=== PATIENT | male | born 1945 | race Caucasian/White ===

== ENCOUNTER 2024-02-02 09:51 | Observation (INO) | payer MEDICARE, OTHER ==
[2024-02-02 10:29] LABS: Absolute Neutrophil Ct (ANC) 5.79 x10^3/uL (1.78-5.38); BASOPHIL % 0.4 % (0.2-1.2); Basophil (Absolute #) 0.03 x10^3/uL (0.01-0.08); Eosinophil % 2.1 % (0.8-7.0); Eosinophil (Absolute #) 0.15 x10^3/uL (0.04-0.54); Hematocrit 30.2 % (40.1-51.0); Hemoglobin 9.5 g/dL (13.7-17.5); IMMATURE GRAN # 0.04 x10^3u/L (0.001-0.031); IMMATURE GRAN % 0.6 % (0.001-0.429); Lymphocyte (Absolute #) 0.28 x10^3/uL (1.32-3.57); Mean Cell Volume 94.4 fL (79.0-92.2); Mean Corpuscular Hemoglobin 29.7 pg (25.7-32.2); Mean Corpuscular Hgb Concent. 31.5 g/dL (32.3-36.5); Mean Platelet Volume 11.8 fL (9.4-12.4); Monocyte (Absolute #) 0.71 x10^3/uL (0.30-0.82); Monocytes % 10.1 % (5.3-12.2); Neutrophil % 82.8 % (34.0-67.9); Platelet Count 129 x10^3/uL (163-337); Red Cell Distribution Width 13.3 % (11.6-14.4)
--- NOTE | 2024-02-02 10:43 | ERPHSYRPT ---
- History of Present Illness Time Seen by Provider: 02/02/24 09:58 Source: patient Exam Limitations: no limitations Patient Subjective Stated Complaint: PT states "I was getting my picc line flushed and I felt like I was going to pass out and felt odd." Triage Nursing Assessment: PT presented alert and oriented X3, skin pale cool dry. PT in no apparent respiratory distress. Pt resting comfortably on the bed. Physician History: 78-year-old male with stage III kidney disease currently has a suprapubic catheter receiving IV antibiotic infusion for UTI presents to our ED as a referral for evaluation of near syncope while getting his PICC line flushed. Patient denies pain. Upon arrival patient appeared pale slightly diaphoretic. No chest pain or shortness of breath. No nausea vomiting or diaphoresis. Patient was last hospitalized for hypokalemia. Patient symptoms were mild to moderate in intensity. No specific worsening or improving factors. He voices no other complaints or concerns at this time. Patient disclaimer Modifying Factors: Improves With: nothing Associated Symptoms: denies symptoms Allergies/Adverse Reactions: No Known Drug Allergies Allergy (Verified 12/07/23 06:06) Home Medications: Primidone 50 MG [Mysoline 50Mg] 50 mg PO TID 08/27/23 [History] Tamsulosin HCl 0.4 mg [Flomax 0.4 MG] 0.4 mg PO DAILY 08/27/23 [History] Mirtazapine 15 mg PO HS 10/30/23 [History] Acetaminophen 325 mg [Tylenol 325 mg] 325 mg PO DAILY 01/10/24 [History] Fluconazole 200 mg PO DAILY 01/10/24 [History] Midodrine HCl 5 mg PO TID 01/10/24 [History] Mv-Mn/Iron/Folic Acid/Herb 190 [Vitamin D3 Complete Caplet] 1 each PO DAILY 01/10/24 [History] Hx Tetanus, Diphtheria Vaccination/Date Given: Yes Hx Influenza Vaccination/Date Given: Yes Hx Pneumococcal Vaccination/Date Given: Yes Immunizations Up to Date: No Travel Risk - International Travel Have you traveled outside of the country in past 3 weeks: No - Emerging Infectious Disease Are you exhibiting symptoms associated with any current EIDs: No - Review of Systems Constitutional: No Symptoms, No Fever, No Chills Eyes: No Symptoms Ears, Nose, & Throat: No Symptoms Respiratory: No Symptoms, No Cough, No Dyspnea Cardiac: No Symptoms, No Chest Pain, No Edema, No Syncope Abdominal/Gastrointestinal: No Symptoms, No Abdominal Pain, No Nausea, No Vomiting, No Diarrhea Genitourinary Symptoms: No Symptoms, No Dysuria Musculoskeletal: No Symptoms, No Back Pain, No Neck Pain Skin: No Symptoms, No Rash Neurological: No Symptoms, No Dizziness, No Focal Weakness, No Sensory Changes Psychological: No Symptoms Endocrine: No Symptoms Hematologic/Lymphatic: No Symptoms Immunological/Allergic: No Symptoms All Other Systems: Reviewed and Negative - Past Medical History Pertinent Past Medical History: Yes Neurological History: No Pertinent History ENT History: No Pertinent History Cardiac History: Other Respiratory History: No Pertinent History Endocrine Medical History: No Pertinent History Musculoskeletal History: No Pertinent History GI Medical History: No Pertinent History History: Renal Disease Psycho-Social History: Anxiety Male Reproductive Disorders: No Pertinent History Other Medical History: Dx pyelonephritis, Hx of high HR and low B/P - Past Surgical History Past Surgical History: Yes Neuro Surgical History: No Pertinent History Cardiac: No Pertinent History Respiratory: No Pertinent History Gastrointestinal: No Pertinent History Genitourinary: Other Musculoskeletal: No Pertinent History Other Surgical History: louie. stent to ureter - Social History Smoking Status: Never smoker Exposure to second hand smoke: No Drug Use: none - Social Determinants of Health Will the patient participate in the screening: Yes Do you worry about a steady place to live?: No Do you have any problems with any of the following?: No known problems In the past 12 months,have you had to go without utilities?: No Transportation Issues: No Has anyone in your support network made you feel unsafe?: No Have you or anyone in your house had to go without enough: No - Nursing Vital Signs Nursing Vital Signs: Initial Vital Signs Temperature 97.0 F 02/02/24 09:52 Pulse Rate 150 H 02/02/24 09:52 Respiratory Rate 20 02/02/24 09:52 Blood Pressure 116/69 02/02/24 09:52 O2 Sat by Pulse Oximetry 97 02/02/24 09:52 Pain Scale Pain Intensity 0 - Physical Exam General Appearance: no apparent distress, alert Eye Exam: PERRL/EOMI, eyes nml inspection Ears, Nose, Throat Exam: normal ENT inspection, TMs normal, pharynx normal, moist mucous membranes Neck Exam: normal inspection, non-tender, supple, full range of motion Respiratory Exam: normal breath sounds, lungs clear, airway intact, No respiratory distress Cardiovascular Exam: regular rate/rhythm, normal heart sounds, normal peripheral pulses Gastrointestinal/Abdomen Exam: soft, normal bowel sounds, No tenderness, No mass Back Exam: normal inspection, normal range of motion, No CVA tenderness, No vertebral tenderness Extremity Exam: normal inspection, normal range of motion, pelvis stable Neurologic Exam: alert, oriented x 3, cooperative, normal mood/affect, nml cere bellar function, nml station & gait, sensation nml, No motor deficits Skin Exam: normal color, warm, dry, No rash Lymphatic Exam: No adenopathy SpO2 Interpretation: normal SpO2: 96 O2 Delivery: Room Air - Course Nursing assessment & vital signs reviewed: Yes EKG Interpreted by Me: RATE ([id number]), Sinus Tach, LAFB, Right Bundle Branch Block Ordered Tests: Active Orders 24 hr Category Date Time Status Plastic Panel Installer STAT Care 02/02/24 10:09 Active EKG-ER Only STAT Care 02/02/24 10:08 Active IV Insertion STAT Care 02/02/24 10:08 Active Pulse Oximetry (ED) STAT Care 02/02/24 10:08 Active CBC W DIFF Stat Lab 02/02/24 10:25 Completed CMP Stat Lab 02/02/24 10:25 Completed CULTURE,URINE Stat Lab 02/02/24 11:29 Received TROPONIN Q4H Lab 02/02/24 10:25 Completed TROPONIN Q4H Lab 02/02/24 12:30 Completed TROPONIN Q4H Lab 02/02/24 18:15 Ordered UA W/RFX UR CULTURE Stat Lab 02/02/24 11:29 Completed Medication Summary Generic Name Dose Route Start Last Admin Trade Name Freq PRN Reason Stop Dose Admin Sodium Chloride 1,000 mls @ 150 mls/hr 02/02/24 12:30 02/02/24 12:30 Sodium Chloride 0.9% 1000 Ml IV 03/03/24 12:29 150 mls/hr .[id number] REJI Administration Discontinued Medications Generic Name Dose Route Start Last Admin Trade Name Freq PRN Reason Stop Dose Admin Sodium Chloride 500 mls @ 500 mls/hr 02/02/24 11:12 02/02/24 12:29 Sodium Chloride 0.9% 500 Ml IV 02/02/24 12:11 Infused .Q1H ONE Infusion Sodium Chloride Confirm 02/02/24 11:14 Sodium Chloride 0.9% 500 Ml Administered 02/02/24 11:15 Dose 500 mls @ ud IV .STK-MED ONE Lab/Rad Data: Laboratory Result Diagrams 02/02/24 10:25 02/02/24 10:25 Laboratory Results 02/02/24 02/02/24 02/02/24 Range/Units 12:30 11:29 10:25 WBC (4.23-9.07) x10^3/uL RBC (4.63-6.08) x10^6/uL Hgb (13.7-17.5) g/dL Hct (40.1-51.0) % MCV (79.0-92.2) fL MCH (25.7-32.2) pg MCHC (32.3-36.5) g/dL RDW (11.6-14.4) % Plt Count (163-337) x10^3/uL MPV (9.4-12.4) fL Gran % (34.0-67.9) % Immature Gran % (Auto) (0.001-0.429) % Nucleat RBC Rel Count (0.00-0.2) % Eos # (Auto) (0.04-0.54) x10^3/uL Immature Gran # (Auto) (0.001-0.031) x10^3u/L Absolute Lymphs (auto) (1.32-3.57) x10^3/uL Absolute Monos (auto) (0.30-0.82) x10^3/uL Absolute Nucleated RBC (0.00-0.012) x10^3u/L Lymphocytes % (21.8-53.1) % Monocytes % (5.3-12.2) % Eosinophils % (0.8-7.0) % Basophils % (0.2-1.2) % Absolute Granulocytes (1.78-5.38) x10^3/uL Basophils # (0.01-0.08) x10^3/uL Sodium (135-145) mmol/L Potassium (3.5-5.1) mmol/L Chloride (98-107) mmol/L Carbon Dioxide (22-30) mmol/L Anion Gap (5-15) MEQ/L BUN (9-20) mg/dL Creatinine (0.66-1.25) mg/dL Estimated GFR ML/MIN Glucose (74-106) mg/dL Calcium (8.4-10.2) mg/dL Total Bilirubin (0.2-1.3) mg/dL AST (17-59) U/L ALT (0-50) U/L Alkaline Phosphatase (38-126) U/L Troponin I 0.014 0.016 (0.000-0.033) ng/mL Serum Total Protein (6.3-8.2) g/dL Albumin (3.5-5.0) g/dL Urine Color Yellow (Yellow) Urine Appearance Cloudy A (Clear) Urine pH 6.0 (4.6-8.0) Ur Specific [place] 1.015 (1.005-1.030) Urine Protein 300 A (Negative) Urine Glucose (UA) Negative (Negative) mg/dL Urine Ketones Negative (Negative) Urine Blood Large A (Negative) Urine Nitrite Negative (Negative) Urine Bilirubin Negative (Negative) Urine Urobilinogen 0.2 (0.2) mg/dL Ur Leukocyte Esterase Large A (Negative) U Hyaline Cast (Auto) 11-20 (0-2) /LPF Urine Microscopic RBC >100 A (0-5) /HPF Urine Microscopic WBC >100 A (0-5) /HPF Ur Epithelial Cells None Seen (None Seen) /HPF Urine Bacteria Moderate A (None Seen) /HPF Urine Culture Reflexed YES (NO) 02/02/24 02/02/24 Range/Units 10:25 10:25 WBC 7.0 (4.23-9.07) x10^3/uL RBC 3.20 L (4.63-6.08) x10^6/uL Hgb 9.5 L (13.7-17.5) g/dL Hct 30.2 L (40.1-51.0) % MCV 94.4 H (79.0-92.2) fL MCH 29.7 (25.7-32.2) pg MCHC 31.5 L (32.3-36.5) g/dL RDW 13.3 (11.6-14.4) % Plt Count 129 L (163-337) x10^3/uL MPV 11.8 (9.4-12.4) fL Gran % 82.8 H (34.0-67.9) % Immature Gran % (Auto) 0.6 H (0.001-0.429) % Nucleat RBC Rel Count 0.0 (0.00-0.2) % Eos # (Auto) 0.15 (0.04-0.54) x10^3/uL Immature Gran # (Auto) 0.04 H (0.001-0.031) x10^3u/L Absolute Lymphs (auto) 0.28 L (1.32-3.57) x10^3/uL Absolute Monos (auto) 0.71 (0.30-0.82) x10^3/uL Absolute Nucleated RBC 0.00 (0.00-0.012) x10^3u/L Lymphocytes % 4.0 L (21.8-53.1) % Monocytes % 10.1 (5.3-12.2) % Eosinophils % 2.1 (0.8-7.0) % Basophils % 0.4 (0.2-1.2) % Absolute Granulocytes 5.79 H (1.78-5.38) x10^3/uL Basophils # 0.03 (0.01-0.08) x10^3/uL Sodium 134 L (135-145) mmol/L Potassium 3.7 (3.5-5.1) mmol/L Chloride 101 (98-107) mmol/L Carbon Dioxide 19 L (22-30) mmol/L Anion Gap 18.2 H (5-15) MEQ/L BUN 78 H (9-20) mg/dL Creatinine 3.77 H (0.66-1.25) mg/dL Estimated GFR 15.9 ML/MIN Glucose 129 H (74-106) mg/dL Calcium 9.3 (8.4-10.2) mg/dL Total Bilirubin 0.30 (0.2-1.3) mg/dL AST 18 (17-59) U/L ALT 13 (0-50) U/L Alkaline Phosphatase 57 (38-126) U/L Troponin I (0.000-0.033) ng/mL Serum Total Protein 6.6 (6.3-8.2) g/dL Albumin 3.7 (3.5-5.0) g/dL Urine Color (Yellow) Urine Appearance (Clear) Urine pH (4.6-8.0) Ur Specific [place] (1.005-1.030) Urine Protein (Negative) Urine Glucose (UA) (Negative) mg/dL Urine Ketones (Negative) Urine Blood (Negative) Urine Nitrite (Negative) Urine Bilirubin (Negative) Urine Urobilinogen (0.2) mg/dL Ur Leukocyte Esterase (Negative) U Hyaline Cast (Auto) (0-2) /LPF Urine Microscopic RBC (0-5) /HPF Urine Microscopic WBC (0-5) /HPF Ur Epithelial Cells (None Seen) /HPF Urine Bacteria (None Seen) /HPF Urine Culture Reflexed (NO) - Progress Progress: improved Progress Note: 78-year-old male presents to the emergency department for evaluation. Patient had a near syncopal episode while he is PICC line was being flushed. Upon arrival patient was pale diaphoretic. Workup reveals a significant urinary tract infection. Levaquin ordered. Acute renal injury over chronic renal insufficiency. IV fluids infused. While in our ED patient was observed to have low blood pressure. Patient blood pressure responding to IV fluids. Patient mentating well. No chest pain. Patient will require hospitalization for observation. Case discussed with Dr. Carr hospitalist who accepts admission to observation at 1:36 PM. Plan of care discussed with patient and his . They agree to admission [facility] for further evaluation and treatment. Portions of this note were created with voice recognition technology. There may be grammatical, spelling, punctuation or sound alike errors Complexity problem addressed is moderate acute complicated. No critical care time. Complex data reviewed and analyzed as extensive. Test ordered test reviewed results analyzed and correlated clinically with history and physical exam. Risk of complication or risk of morbidity/mortality patient management is high. Patient requires hospitalization for further evaluation and treatment. Vital stable. Time spent to admit patient approximately 15 minutes. Plan of care established for shared decision making. No social determinants of health present to impede follow-up. Portions of this note were created with voice recognition technology. There may be grammatical, spelling, punctuation or sound alike errors 02/02/24 13:41 Counseled pt/family regarding: lab results, diagnosis, need for follow-up - Departure Departure Disposition: Observation Clinical Impression: UTI (urinary tract infection), Hypotension, Dehydration, Macrocytic anemia, Chronic renal insufficiency, Near syncope Condition: Stable Critical Care Time: No Referrals: ERYN GEORGES MD [Primary Care Provider] - Follow up/PCP as directed
[2024-02-02 10:59] LABS: ALBUMIN 3.7 g/dL (3.5-5.0); ANION GAP 18.2 MEQ/L (5-15); BILIRUBIN,TOTAL 0.3 mg/dL (0.2-1.3); Calcium 9.3 mg/dL (8.4-10.2); Creatinine 1 3.77 mg/dL (0.66-1.25); EST GLOMERULAR FILTRATION RATE 15.9 ML/MIN; Potassium 3.7 mmol/L (3.5-5.1); Total Protein 6.6 g/dL (6.3-8.2)
[2024-02-02] MEDS ORDERED: Sodium Chloride 0.9% 500 ML 500 ML IV ONE (11:14)
[2024-02-02] MEDS: Sodium Chloride 0.9% 500 ML 500 ML IV ONE (11:15)
[2024-02-02 12:12] LABS: Appearance Cloudy (Clear); Bacteria Moderate /HPF (None Seen); Bilirubin Negative (Negative); Blood Large (Negative); Epithelial Cells None Seen /HPF (None Seen); Glucose, Urine Negative (Negative); Ketones Negative (Negative); Leukocyte Esterase Large (Negative); Nitrite Negative (Negative); Protein,Urine Dip 300 (Negative); RBC >100 /HPF (0-5); Specific Gravity 1.015 (1.005-1.030); Urobilinogen 0.2 mg/dL (0.2); WBC >100 /HPF (0-5)
[2024-02-02 12:14] LABS: ADD URINE CULTURE? YES (NO)
[2024-02-02] MEDS: Sodium Chloride 0.9% 1000 ML 1,000 ML IV SCH ×2 (12:30→19:31)
[2024-02-02] MEDS ORDERED: Levofloxacin 500MG/100ML D5W 500 MG/100 ML BAG IV ONE (13:42)
[2024-02-02] MEDS: Levofloxacin 500MG/100ML D5W 500 MG/100 ML BAG IV STA (13:49)
--- NOTE | 2024-02-02 14:28 | PCM.HP ---
History of Present Illness - Chief Complaint Chief Complaint: syncope Date: 02/02/24 History of Present Illness: is a 78 year old male with PMHX of stage III kidney disease, BPH, anxiety, chronic UTI's - follow Dr. Freeman for ID and Urology in [facility]. He currently has a suprapubic catheter receiving IV antibiotic infusion for UTI presents to our ED as a referral for evaluation of near syncope while getting his PICC line flushed. Patient denies pain. Upon arrival patient appeared pale slightly diaphoretic per ER report. No chest pain or shortness of breath. No nausea vomiting or diaphoresis. Patient was last hospitalized for h and released from [place] Thursday. Patient symptoms were mild to moderate in intensity. No specific worsening or improving factors. He voices no other complaints or concerns at this time. - Review of Systems Constitutional: Fatigue, No Fever, No Chills Eyes: No Symptoms Ears, Nose, & Throat: No Symptoms Respiratory: No Cough, No Short Of Breath Cardiac: No Chest Pain, No Edema, No Syncope Abdominal/Gastrointestinal: No Abdominal Pain, No Nausea, No Vomiting, No Diarrhea Genitourinary Symptoms: No Dysuria Musculoskeletal: No Back Pain, No Neck Pain Skin: No Rash Neurological: No Dizziness, No Focal Weakness, No Sensory Changes Psychological: No Symptoms Endocrine: No Symptoms Hematologic/Lymphatic: No Symptoms Immunological/Allergic: No Symptoms Medications & Allergies Home Medications: Home Medication List Primidone 50 MG [Mysoline 50Mg] 50 mg PO TID 08/27/23 [History Confirmed 02/02/24] Tamsulosin HCl 0.4 mg [Flomax 0.4 MG] 0.4 mg PO DAILY 08/27/23 [History Confirmed 02/02/24] Mirtazapine 15 mg PO HS 10/30/23 [History Confirmed 02/02/24] Acetaminophen 325 mg [Tylenol 325 mg] 325 mg PO DAILY 01/10/24 [History Confirmed 02/02/24] Fluconazole 200 mg PO DAILY 01/10/24 [History Confirmed 02/02/24] Midodrine HCl 5 mg PO TID 01/10/24 [History Confirmed 02/02/24] Mv-Mn/Iron/Folic Acid/Herb 190 [Vitamin D3 Complete Caplet] 1 each PO DAILY 01/10/24 [History Confirmed 02/02/24] Allergies/Adverse Reactions: Allergies Allergy/AdvReac Type Severity Reaction Status Date / Time No Known Drug Allergies Allergy Verified 12/07/23 06:06 - Past Medical History Past Medical History: Yes Neurological History: No Pertinent History ENT History: No Pertinent History Cardiac History: Other Respiratory History: No Pertinent History Endocrine Medical History: No Pertinent History Musculoskelatal History: No Pertinent History GI Medical History: No Pertinent History History: Renal Disease Pyscho-Social History: Anxiety Male Reproductive Disorders: No Pertinent History Comment: Dx pyelonephritis, Hx of high HR and low B/P - Past Surgical History Past Surgical History: Yes Neuro Surgical History: No Pertinent History Cardiac History: No Pertinent History Respiratory Surgery: No Pertinent History GI Surgical History: No Pertinent History Genitourinary Surgical Hx: Other Musculskeletal Surgical Hx: No Pertinent History Other Surgical History: louie. stent to ureter - Social History Smoking Status: Never smoker Exposure to second hand smoke: No Alcohol: Occasionally Drug Use: none - Social Determinants of Health Will the patient participate in the screening: Yes Do you worry about a steady place to live?: No Do you have any problems with any of the following?: No known problems In the past 12 months,have you had to go without utilities?: No Have you or anyone in your house had to go without enough: No Transportation Issues: No Has anyone in your support network made you feel unsafe?: No - Physical Exam Vital Signs: Vital Signs - 24 hr Temp Pulse Resp BP BP Pulse Ox 02/02/24 13:49 66 14 114/86 96 02/02/24 13:44 96 02/02/24 13:30 74 18 103/60 94 L 02/02/24 13:15 75 15 103/58 94 L 02/02/24 13:00 70 16 99/57 93 L 02/02/24 12:45 81 14 99/58 95 02/02/24 12:30 72 14 100/59 95 02/02/24 12:15 71 15 77/53 95 02/02/24 12:00 69 14 88/52 95 02/02/24 11:45 81 13 90/55 96 02/02/24 11:30 88 16 96/56 94 L 02/02/24 11:15 89 15 91/57 96 02/02/24 11:00 95 H 21 77/51 96 02/02/24 10:57 92 H 15 82/53 97 02/02/24 10:56 85 16 97 02/02/24 10:50 94 H 14 97 02/02/24 10:40 89 15 97 02/02/24 10:32 143 H 17 96 02/02/24 10:12 98 02/02/24 10:05 149 H 16 106/91 97 02/02/24 10:02 151 H 21 98 02/02/24 09:59 150 H 20 116/69 97 02/02/24 09:52 97.0 F 150 H 20 116/69 97 General Appearance: no apparent distress, alert Neurologic Exam: alert, oriented x 3, cooperative, normal mood/affect, nml cerebellar function, nml station & gait, sensation nml, No motor deficits Eye Exam: PERRL/EOMI, eyes nml inspection Ears, Nose, Throat Exam: normal ENT inspection, TMs normal, pharynx normal, moist mucous membranes Neck Exam: normal inspection, non-tender, supple, full range of motion Respiratory Exam: normal breath sounds, lungs clear, No respiratory distress Cardiovascular Exam: regular rate/rhythm, normal heart sounds, normal peripheral pulses Gastrointestinal/Abdomen Exam: soft, normal bowel sounds, No tenderness, No mass Back Exam: normal inspection, normal range of motion, No CVA tenderness, No vertebral tenderness Extremity Exam: normal inspection, normal range of motion, pelvis stable Skin Exam: warm, dry, pale, No rash Lymphatic Exam: No adenopathy Results - Labs Lab/Micro Results: Lab Results-Last 24 Hours 02/02/24 02/02/24 02/02/24 Range/Units 10:25 10:25 10:25 WBC 7.0 (4.23-9.07) x10^3/uL RBC 3.20 L (4.63-6.08) x10^6/uL Hgb 9.5 L (13.7-17.5) g/dL Hct 30.2 L (40.1-51.0) % MCV 94.4 H (79.0-92.2) fL MCH 29.7 (25.7-32.2) pg MCHC 31.5 L (32.3-36.5) g/dL RDW 13.3 (11.6-14.4) % Plt Count 129 L (163-337) x10^3/uL MPV 11.8 (9.4-12.4) fL Gran % 82.8 H (34.0-67.9) % Immature Gran % (Auto) 0.6 H (0.001-0.429) % Nucleat RBC Rel Count 0.0 (0.00-0.2) % Eos # (Auto) 0.15 (0.04-0.54) x10^3/uL Immature Gran # (Auto) 0.04 H (0.001-0.031) x10^3u/L Absolute Lymphs (auto) 0.28 L (1.32-3.57) x10^3/uL Absolute Monos (auto) 0.71 (0.30-0.82) x10^3/uL Absolute Nucleated RBC 0.00 (0.00-0.012) x10^3u/L Lymphocytes % 4.0 L (21.8-53.1) % Monocytes % 10.1 (5.3-12.2) % Eosinophils % 2.1 (0.8-7.0) % Basophils % 0.4 (0.2-1.2) % Absolute Granulocytes 5.79 H (1.78-5.38) x10^3/uL Basophils # 0.03 (0.01-0.08) x10^3/uL Sodium 134 L (135-145) mmol/L Potassium 3.7 (3.5-5.1) mmol/L Chloride 101 (98-107) mmol/L Carbon Dioxide 19 L (22-30) mmol/L Anion Gap 18.2 H (5-15) MEQ/L BUN 78 H (9-20) mg/dL Creatinine 3.77 H (0.66-1.25) mg/dL Estimated GFR 15.9 ML/MIN Glucose 129 H (74-106) mg/dL Calcium 9.3 (8.4-10.2) mg/dL Total Bilirubin 0.30 (0.2-1.3) mg/dL AST 18 (17-59) U/L ALT 13 (0-50) U/L Alkaline Phosphatase 57 (38-126) U/L Troponin I 0.016 (0.000-0.033) ng/mL Serum Total Protein 6.6 (6.3-8.2) g/dL Albumin 3.7 (3.5-5.0) g/dL Urine Color (Yellow) Urine Appearance (Clear) Urine pH (4.6-8.0) Ur Specific [place] (1.005-1.030) Urine Protein (Negative) Urine Glucose (UA) (Negative) mg/dL Urine Ketones (Negative) Urine Blood (Negative) Urine Nitrite (Negative) Urine Bilirubin (Negative) Urine Urobilinogen (0.2) mg/dL Ur Leukocyte Esterase (Negative) U Hyaline Cast (Auto) (0-2) /LPF Urine Microscopic RBC (0-5) /HPF Urine Microscopic WBC (0-5) /HPF Ur Epithelial Cells (None Seen) /HPF Urine Bacteria (None Seen) /HPF Urine Culture Reflexed (NO) 02/02/24 02/02/24 Range/Units 11:29 12:30 WBC (4.23-9.07) x10^3/uL RBC (4.63-6.08) x10^6/uL Hgb (13.7-17.5) g/dL Hct (40.1-51.0) % MCV (79.0-92.2) fL MCH (25.7-32.2) pg MCHC (32.3-36.5) g/dL RDW (11.6-14.4) % Plt Count (163-337) x10^3/uL MPV (9.4-12.4) fL Gran % (34.0-67.9) % Immature Gran % (Auto) (0.001-0.429) % Nucleat RBC Rel Count (0.00-0.2) % Eos # (Auto) (0.04-0.54) x10^3/uL Immature Gran # (Auto) (0.001-0.031) x10^3u/L Absolute Lymphs (auto) (1.32-3.57) x10^3/uL Absolute Monos (auto) (0.30-0.82) x10^3/uL Absolute Nucleated RBC (0.00-0.012) x10^3u/L Lymphocytes % (21.8-53.1) % Monocytes % (5.3-12.2) % Eosinophils % (0.8-7.0) % Basophils % (0.2-1.2) % Absolute Granulocytes (1.78-5.38) x10^3/uL Basophils # (0.01-0.08) x10^3/uL Sodium (135-145) mmol/L Potassium (3.5-5.1) mmol/L Chloride (98-107) mmol/L Carbon Dioxide (22-30) mmol/L Anion Gap (5-15) MEQ/L BUN (9-20) mg/dL Creatinine (0.66-1.25) mg/dL Estimated GFR ML/MIN Glucose (74-106) mg/dL Calcium (8.4-10.2) mg/dL Total Bilirubin (0.2-1.3) mg/dL AST (17-59) U/L ALT (0-50) U/L Alkaline Phosphatase (38-126) U/L Troponin I 0.014 (0.000-0.033) ng/mL Serum Total Protein (6.3-8.2) g/dL Albumin (3.5-5.0) g/dL Urine Color Yellow (Yellow) Urine Appearance Cloudy A (Clear) Urine pH 6.0 (4.6-8.0) Ur Specific [place] 1.015 (1.005-1.030) Urine Protein 300 A (Negative) Urine Glucose (UA) Negative (Negative) mg/dL Urine Ketones Negative (Negative) Urine Blood Large A (Negative) Urine Nitrite Negative (Negative) Urine Bilirubin Negative (Negative) Urine Urobilinogen 0.2 (0.2) mg/dL Ur Leukocyte Esterase Large A (Negative) U Hyaline Cast (Auto) 11-20 (0-2) /LPF Urine Microscopic RBC >100 A (0-5) /HPF Urine Microscopic WBC >100 A (0-5) /HPF Ur Epithelial Cells None Seen (None Seen) /HPF Urine Bacteria Moderate A (None Seen) /HPF Urine Culture Reflexed YES (NO) Assessment/Plan (1) UTI (urinary tract infection) Current Visit: Yes Status: Acute Assessment & Plan: - Complicated as pt has a hx of multiple UTI's and has a urologist in [facility]. Also follows ID OP for multiple infections. - NS @ 75ml/hr - Reviewed previous culture reports - Start Merrem based on previous results. - UC pending Code(s): N39.0 - URINARY TRACT INFECTION, SITE NOT SPECIFIED (2) Near syncope Current Visit: Yes Status: Acute Assessment & Plan: - 2:2 UTI - see UTI plan - PT eval and treat (3) Chronic renal insufficiency Current Visit: Yes Status: Acute Assessment & Plan: - Follows Dr. [place] - Baseline 2.61- Today 3 Code(s): N18.9 - CHRONIC KIDNEY DISEASE, UNSPECIFIED (4) Hypotension Current Visit: Yes Status: Resolved Assessment & Plan: - appears to have resolved since admission with IVF - Continue IVF Code(s): I95.9 - HYPOTENSION, UNSPECIFIED (5) Macrocytic anemia Current Visit: Yes Status: Acute Assessment & Plan: - HGB 9.5- stable - iron panel - Continue Vitamin D3 complete Cap VTE:Heparin PPI: Protonix Next of KIN: D/C plan: 2-3 days Code(s): D53.9 - NUTRITIONAL ANEMIA, UNSPECIFIED
[2024-02-02 15:26] LABS: Iron 53 ug/dL (49-181); Iron Saturation 28 % (20-39); TIBC 191 ug/dL (261-497)
[2024-02-02] MEDS ORDERED: MYSOLINE 50MG PO PRN (15:35)
[2024-02-02 16:08] LABS: Ferritin > 889 ng/mL (17.9-464); Folate (Folic Acid) 7.69 ng/mL (2.76 - >20); Vitamin B12 359 pg/mL (239-931)
[2024-02-02] MEDS: PROTONIX 40 MG IV IV SCH (16:17)
[2024-02-02] MEDS ORDERED: Merrem IV ONE (22:54)
[2024-02-02] MEDS ORDERED: Sodium Chloride 100ML MINI-BAG PLUS 100 ML IV ONE (22:55)
[2024-02-02] MEDS: HEPARIN 5000 UNITS/0.5 ML (HIGH RISK MED) SQ SCH (22:57)
[2024-02-02] MEDS: PROAMATINE PO SCH (22:58)
[2024-02-02] MEDS: MIRTAZAPINE PO SCH (22:58)
[2024-02-02] MEDS: Flomax 0.4 MG PO SCH (22:58)
[2024-02-02] MEDS: Merrem 1 GM in Sodium Chloride 100ML MINI-BAG PLUS 100 ML IV SCH (22:58)
[2024-02-03 03:43] VITALS: RESP 16
[2024-02-03] MEDS ORDERED: Merrem IV ONE (05:53)
[2024-02-03] MEDS ORDERED: Sodium Chloride 100ML MINI-BAG PLUS 100 ML IV ONE (05:53)
[2024-02-03 07:14] LABS: Hematocrit 26.4 % (40.1-51.0); Hemoglobin 8.2 g/dL (13.7-17.5); Mean Cell Volume 95.3 fL (79.0-92.2); Mean Corpuscular Hemoglobin 29.6 pg (25.7-32.2); Mean Corpuscular Hgb Concent. 31.1 g/dL (32.3-36.5); Mean Platelet Volume 11.5 fL (9.4-12.4); Platelet Count 123 x10^3/uL (163-337); Red Blood Count 2.77 x10^6/uL (4.63-6.08); Red Cell Distribution Width 13.4 % (11.6-14.4); White Blood Count 5.9 x10^3/uL (4.23-9.07)
[2024-02-03 07:26] LABS: ALBUMIN 3.3 g/dL (3.5-5.0); ANION GAP 14.8 MEQ/L (5-15); BILIRUBIN,TOTAL 0.2 mg/dL (0.2-1.3); Calcium 8.7 mg/dL (8.4-10.2); Creatinine 1 3.46 mg/dL (0.66-1.25); EST GLOMERULAR FILTRATION RATE 17.6 ML/MIN; Potassium 3.6 mmol/L (3.5-5.1); Total Protein 6.4 g/dL (6.3-8.2)
[2024-02-03 09:21] LABS: Iron 32 ug/dL (49-181); Iron Saturation 20 % (20-39); TIBC 165 ug/dL (261-497)
[2024-02-03] MEDS ORDERED: ENOXAPARIN SODIUM SQ SCH (10:00)
[2024-02-03] MEDS ORDERED: NON-FORMULARY ITEM (Mv-Mn/Iron/Folic Acid/Herb 190 [Vitamin D3 Complete Caplet] 1 EACH Tab PO SCH (10:00)
[2024-02-03 10:15] LABS: Folate (Folic Acid) 7.09 ng/mL (2.76 - >20)
[2024-02-03] MEDS: VITAMIN D PO SCH (10:30)
--- NOTE | 2024-02-03 12:08 | PCM.NOTE ---
Date and Time: 02/03/24 1201 Subjective Assessment: 02/02/24 is a 78 year old male with PMHX of stage III kidney disease, BPH, anxiety, chronic UTI's - follow Dr. Freeman for ID and Urology in [facility]. He currently has a suprapubic catheter receiving IV antibiotic infusion for UTI presents to our ED as a referral for evaluation of near syncope while getting his PICC line flushed. Patient denies pain. Upon arrival patient appeared pale slightly diaphoretic per ER report. No chest pain or shortness of breath. No nausea vomiting or diaphoresis. Patient was last hospitalized for hypokalemia and released from [facility] Thursday. Patient symptoms were mild to moderate in intensity. No specific worsening or improving factors. He voices no other complaints or concerns at this time. 02/03/24 Pt resting in bed. He is feeling much better today. UC shows gram positive but sensitivity pending. CAMI improving with IVF. Pt follows Dr. Cuba and he is requesting to have chart records to to his office. Continue Merrem IV antibiotic and IVF. Likely will d/c tomorrow after sensitivity back. He denies any further concerns at this time. - Review of Systems Constitutional: No Fever, No Chills Eyes: No Symptoms Ears, Nose, & Throat: No Symptoms Respiratory: No Cough, No Short Of Breath Cardiac: No Chest Pain, No Edema, No Syncope Abdominal/Gastrointestinal: No Abdominal Pain, No Nausea, No Vomiting, No Diarrhea Genitourinary Symptoms: No Dysuria Musculoskeletal: No Back Pain, No Neck Pain Skin: No Rash Neurological: No Dizziness, No Focal Weakness, No Sensory Changes Psychological: No Symptoms Endocrine: No Symptoms Hematologic/Lymphatic: No Symptoms Immunological/Allergic: No Symptoms Objective Exam General Appearance: no apparent distress, alert Neurologic Exam: alert, oriented x 3, cooperative, normal mood/affect, nml cerebellar function, sensation nml, No motor deficits Skin Exam: normal color, warm, dry Eye Exam: PERRL, EOMI, eyes nml inspection Ears, Nose, Throat Exam: normal ENT inspection, pharynx normal, moist mucous membranes Neck Exam: normal inspection, non-tender, supple, full range of motion Respiratory Exam: normal breath sounds, lungs clear, No respiratory distress Cardiovascular Exam: regular rate/rhythm, normal heart sounds Gastrointestinal/Abdomen Exam: soft, No tenderness, No mass Extremity Exam: normal inspection, normal range of motion Back Exam: normal inspection, normal range of motion, No CVA tenderness, No vertebral tenderness Male Genitalia Exam: deferred Rectal Exam: deferred Objective Data Vital Signs: Vital Signs - 24 hr Temp Pulse Resp BP BP Pulse Ox 02/03/24 11:52 97.5 F 105 H 16 113/63 93 L 02/03/24 07:23 97.1 F 72 16 106/57 93 L 02/03/24 03:42 97.8 F 77 16 115/64 96 02/03/24 00:00 97.1 F 67 18 107/59 96 02/02/24 19:34 97.5 F 73 16 111/62 98 02/02/24 15:14 97.6 F 76 16 108/59 95 02/02/24 14:42 95 02/02/24 14:28 97.6 F 76 16 108/59 95 02/02/24 13:49 66 14 114/86 96 02/02/24 13:44 96 02/02/24 13:30 74 18 103/60 94 L 02/02/24 13:15 75 15 103/58 94 L 02/02/24 13:00 70 16 99/57 93 L 02/02/24 12:45 81 14 99/58 95 02/02/24 12:30 72 14 100/59 95 02/02/24 12:15 71 15 77/53 95 Pain Assessment - Last Documented Pain Intensity 0 Intake and Output: Intake & Output 02/01/24 02/02/24 02/03/24 02/04/24 11:59 11:59 11:59 11:59 Intake Total 1843 Output Total 1075 Balance 768 Weight 63.1 kg 61.6 kg Lab Results: Lab Results-Last 24 Hours 02/02/24 02/02/24 02/02/24 Range/Units 11:29 12:30 12:30 WBC (4.23-9.07) x10^3/uL RBC (4.63-6.08) x10^6/uL Hgb (13.7-17.5) g/dL Hct (40.1-51.0) % MCV (79.0-92.2) fL MCH (25.7-32.2) pg MCHC (32.3-36.5) g/dL RDW (11.6-14.4) % Plt Count (163-337) x10^3/uL MPV (9.4-12.4) fL Sodium (135-145) mmol/L Potassium (3.5-5.1) mmol/L Chloride (98-107) mmol/L Carbon Dioxide (22-30) mmol/L Anion Gap (5-15) MEQ/L BUN (9-20) mg/dL Creatinine (0.66-1.25) mg/dL Estimated GFR ML/MIN Glucose (74-106) mg/dL Calcium (8.4-10.2) mg/dL Iron (49-181) ug/dL TIBC (261-497) ug/dL Iron Saturation (20-39) % Ferritin > 889 H (17.9-464) ng/mL Total Bilirubin (0.2-1.3) mg/dL AST (17-59) U/L ALT (0-50) U/L Alkaline Phosphatase (38-126) U/L Troponin I 0.014 (0.000-0.033) ng/mL Serum Total Protein (6.3-8.2) g/dL Albumin (3.5-5.0) g/dL Vitamin B12 359 (239-931) pg/mL Folic Acid 7.69 (2.76 - >20) ng/mL Urine Color Yellow (Yellow) Urine Appearance Cloudy A (Clear) Urine pH 6.0 (4.6-8.0) Ur Specific [place] 1.015 (1.005-1.030) Urine Protein 300 A (Negative) Urine Glucose (UA) Negative (Negative) mg/dL Urine Ketones Negative (Negative) Urine Blood Large A (Negative) Urine Nitrite Negative (Negative) Urine Bilirubin Negative (Negative) Urine Urobilinogen 0.2 (0.2) mg/dL Ur Leukocyte Esterase Large A (Negative) U Hyaline Cast (Auto) 11-20 (0-2) /LPF Urine Microscopic RBC >100 A (0-5) /HPF Urine Microscopic WBC >100 A (0-5) /HPF Ur Epithelial Cells None Seen (None Seen) /HPF Urine Bacteria Moderate A (None Seen) /HPF Urine Culture Reflexed YES (NO) 02/02/24 02/02/24 02/03/24 Range/Units 12:30 17:05 07:12 WBC 5.9 (4.23-9.07) x10^3/uL RBC 2.77 L (4.63-6.08) x10^6/uL Hgb 8.2 L (13.7-17.5) g/dL Hct 26.4 L (40.1-51.0) % MCV 95.3 H (79.0-92.2) fL MCH 29.6 (25.7-32.2) pg MCHC 31.1 L (32.3-36.5) g/dL RDW 13.4 (11.6-14.4) % Plt Count 123 L (163-337) x10^3/uL MPV 11.5 (9.4-12.4) fL Sodium (135-145) mmol/L Potassium (3.5-5.1) mmol/L Chloride (98-107) mmol/L Carbon Dioxide (22-30) mmol/L Anion Gap (5-15) MEQ/L BUN (9-20) mg/dL Creatinine (0.66-1.25) mg/dL Estimated GFR ML/MIN Glucose (74-106) mg/dL Calcium (8.4-10.2) mg/dL Iron 53 (49-181) ug/dL TIBC 191 L (261-497) ug/dL Iron Saturation 28 (20-39) % Ferritin (17.9-464) ng/mL Total Bilirubin (0.2-1.3) mg/dL AST (17-59) U/L ALT (0-50) U/L Alkaline Phosphatase (38-126) U/L Troponin I 0.019 (0.000-0.033) ng/mL Serum Total Protein (6.3-8.2) g/dL Albumin (3.5-5.0) g/dL Vitamin B12 (239-931) pg/mL Folic Acid (2.76 - >20) ng/mL Urine Color (Yellow) Urine Appearance (Clear) Urine pH (4.6-8.0) Ur Specific [place] (1.005-1.030) Urine Protein (Negative) Urine Glucose (UA) (Negative) mg/dL Urine Ketones (Negative) Urine Blood (Negative) Urine Nitrite (Negative) Urine Bilirubin (Negative) Urine Urobilinogen (0.2) mg/dL Ur Leukocyte Esterase (Negative) U Hyaline Cast (Auto) (0-2) /LPF Urine Microscopic RBC (0-5) /HPF Urine Microscopic WBC (0-5) /HPF Ur Epithelial Cells (None Seen) /HPF Urine Bacteria (None Seen) /HPF Urine Culture Reflexed (NO) 02/03/24 02/03/24 02/03/24 Range/Units 07:12 07:12 07:12 WBC (4.23-9.07) x10^3/uL RBC (4.63-6.08) x10^6/uL Hgb (13.7-17.5) g/dL Hct (40.1-51.0) % MCV (79.0-92.2) fL MCH (25.7-32.2) pg MCHC (32.3-36.5) g/dL RDW (11.6-14.4) % Plt Count (163-337) x10^3/uL MPV (9.4-12.4) fL Sodium 138 (135-145) mmol/L Potassium 3.6 (3.5-5.1) mmol/L Chloride 107 (98-107) mmol/L Carbon Dioxide 20 L (22-30) mmol/L Anion Gap 14.8 (5-15) MEQ/L BUN 69 H (9-20) mg/dL Creatinine 3.46 H (0.66-1.25) mg/dL Estimated GFR 17.6 ML/MIN Glucose 89 (74-106) mg/dL Calcium 8.7 (8.4-10.2) mg/dL Iron 32 L (49-181) ug/dL TIBC 165 L (261-497) ug/dL Iron Saturation 20 (20-39) % Ferritin 895 H (17.9-464) ng/mL Total Bilirubin 0.20 (0.2-1.3) mg/dL AST 16 L (17-59) U/L ALT 10 (0-50) U/L Alkaline Phosphatase 44 (38-126) U/L Troponin I (0.000-0.033) ng/mL Serum Total Protein 6.4 (6.3-8.2) g/dL Albumin 3.3 L (3.5-5.0) g/dL Vitamin B12 319 (239-931) pg/mL Folic Acid 7.09 (2.76 - >20) ng/mL Urine Color (Yellow) Urine Appearance (Clear) Urine pH (4.6-8.0) Ur Specific [place] (1.005-1.030) Urine Protein (Negative) Urine Glucose (UA) (Negative) mg/dL Urine Ketones (Negative) Urine Blood (Negative) Urine Nitrite (Negative) Urine Bilirubin (Negative) Urine Urobilinogen (0.2) mg/dL Ur Leukocyte Esterase (Negative) U Hyaline Cast (Auto) (0-2) /LPF Urine Microscopic RBC (0-5) /HPF Urine Microscopic WBC (0-5) /HPF Ur Epithelial Cells (None Seen) /HPF Urine Bacteria (None Seen) /HPF Urine Culture Reflexed (NO) Multi-Disciplinary Progress Notes: Multi-Disciplinary Progress Notes 02/03/24 11:07 Case Management Note by Chelly Wright 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 HE REPORTS HE USUALLY SEES THEM WEEKLY ON TUESDAYS. S/W OTPT [facility]-PATIENT SCHEDULED AGAIN FOR NEXT THURSDAY Initialized on 02/03/24 11:07 - END OF NOTE Assessment/Plan (1) UTI (urinary tract infection) Current Visit: Yes Status: Acute Code(s): N39.0 - URINARY TRACT INFECTION, SITE NOT SPECIFIED (2) Near syncope Current Visit: Yes Status: Acute (3) Chronic renal insufficiency Current Visit: Yes Status: Acute Code(s): N18.9 - CHRONIC KIDNEY DISEASE, UNSPECIFIED (4) Hypotension Current Visit: Yes Status: Resolved Code(s): I95.9 - HYPOTENSION, UNSPECIFIED (5) Macrocytic anemia Current Visit: Yes Status: Acute Assessment & Plan: (1) UTI (urinary tract infection) Current Visit: Yes Status: Acute Assessment & Plan: - Complicated as pt has a hx of multiple UTI's and has a urologist in [facility]. Also follows ID OP for multiple infections. - NS @ 75ml/hr - Reviewed previous culture reports - Start Merrem based on previous results. - UC pending 02/02 - UC gram negative sensitivity pending Code(s): N39.0 - URINARY TRACT INFECTION, SITE NOT SPECIFIED (2) Near syncope Current Visit: Yes Status: Acute Assessment & Plan: - 2:2 UTI - see UTI plan - PT eval and treat (3) Chronic renal insufficiency Current Visit: Yes Status: Acute Assessment & Plan: - Follows Dr. Cuba - Baseline 2.61- Today 3.77 02/02 - Creat 3.46- explains pt's creat. at wa from [facility] was 3.35- she thinks this is his baseline level - will send notes to Dr. Cuba per pt request Code(s): N18.9 - CHRONIC KIDNEY DISEASE, UNSPECIFIED (4) Hypotension Current Visit: Yes Status: Resolved Assessment & Plan: - appears to have resolved since admission with IVF - Continue IVF Code(s): I95.9 - HYPOTENSION, UNSPECIFIED (5) Macrocytic anemia Current Visit: Yes Status: Acute Assessment & Plan: - HGB 9.5- stable - iron panel - Continue Vitamin D3 complete Cap 02/02 - Hgb 8.2- trend VTE: Heparin PPI: Protonix Next of KIN: D/C plan: tomorrow Code(s): D53.9 - NUTRITIONAL ANEMIA, UNSPECIFIED
[2024-02-04 05:02] LABS: Hematocrit 25.1 % (40.1-51.0); Hemoglobin 8.1 g/dL (13.7-17.5); Mean Cell Volume 91.6 fL (79.0-92.2); Mean Corpuscular Hemoglobin 29.6 pg (25.7-32.2); Mean Corpuscular Hgb Concent. 32.3 g/dL (32.3-36.5); Platelet Count 151 x10^3/uL (163-337); Red Blood Count 2.74 x10^6/uL (4.63-6.08); Red Cell Distribution Width 13.6 % (11.6-14.4); White Blood Count 5.1 x10^3/uL (4.23-9.07)
[2024-02-04 05:26] LABS: ALBUMIN 3.2 g/dL (3.5-5.0); ANION GAP 12.1 MEQ/L (5-15); BILIRUBIN,TOTAL 0.2 mg/dL (0.2-1.3); Calcium 8.6 mg/dL (8.4-10.2); Creatinine 1 3.14 mg/dL (0.66-1.25); EST GLOMERULAR FILTRATION RATE 19.8 ML/MIN; Potassium 3.5 mmol/L (3.5-5.1); Total Protein 6.3 g/dL (6.3-8.2)
--- NOTE | 2024-02-04 10:52 | PCM.DS ---
Discharge Summary Date of Admission: 02/02/24 14:05 Date of Discharge: 02/04/24 Admitting Physician: DMITRY MOY MD Primary Care Provider: ERYN GEORGES Allergies Allergies No Known Drug Allergies Allergy (Verified 12/07/23 06:06) Hospital Summary - Hospital Course Hospital Course: 02/02/24 is a 78 year old male with PMHX of stage III kidney disease, BPH, anxiety, chronic UTI's - follow Dr. Freeman for ID and Urology in [facility]. He currently has a suprapubic catheter receiving IV antibiotic infusion for UTI presents to our ED as a referral for evaluation of near syncope while getting his PICC line flushed. Patient denies pain. Upon arrival patient appeared pale slightly diaphoretic per ER report. No chest pain or shortness of breath. No nausea vomiting or diaphoresis. Patient was last hospitalized for hypokalemia and released from [facility] Thursday. Patient symptoms were mild to moderate in intensity. No specific worsening or improving factors. He voices no other complaints or concerns at this time. 02/03/24 Pt resting in bed. He is feeling much better today. UC shows gram positive but sensitivity pending. CAMI improving with IVF. Pt follows Dr. Cuba and he is requesting to have chart records to to his office. Continue Merrem IV antibiotic and IVF. Likely will d/c tomorrow after sensitivity back. He denies any further concerns at this time. 02/04/24 Pt resting in bed. He is feeling much better. UC + for Enterococcus Faecalis will d/c with Levaquin per sensitivity results. Pt already has f/u appointment made for Dr. Cuba, Dr. Freeman, and Dr. Georges OP. He denies any further concerns at this time and would like to d/c today. - Vitals & Intake/Output Vital Signs: Vital Signs Temperature 97.8 F 02/04/24 06:59 Pulse Rate 79 02/04/24 06:59 Respiratory Rate 16 02/04/24 06:59 Blood Pressure 114/61 02/04/24 06:59 O2 Sat by Pulse Oximetry 96 02/04/24 06:59 Intake & Output: Intake & Output 02/01/24 02/02/24 02/03/24 02/04/24 11:59 11:59 11:59 11:59 Intake Total 1013 6464 Output Total 7410 4665 Balance 768 -956 Weight 63.1 kg 61.6 kg - Lab Result Diagrams: 02/04/24 04:51 02/04/24 04:51 Lab Results-Last 24 Hrs: Lab Results-Last 24 Hours 02/03/24 02/03/24 02/04/24 Range/Units 07:12 07:12 04:51 WBC 5.1 (4.23-9.07) x10^3/uL RBC 2.74 L (4.63-6.08) x10^6/uL Hgb 8.1 L (13.7-17.5) g/dL Hct 25.1 L (40.1-51.0) % MCV 91.6 (79.0-92.2) fL MCH 29.6 (25.7-32.2) pg MCHC 32.3 (32.3-36.5) g/dL RDW 13.6 (11.6-14.4) % Plt Count 151 L (163-337) x10^3/uL MPV 12.0 (9.4-12.4) fL Sodium (135-145) mmol/L Potassium (3.5-5.1) mmol/L Chloride (98-107) mmol/L Carbon Dioxide (22-30) mmol/L Anion Gap (5-15) MEQ/L BUN (9-20) mg/dL Creatinine (0.66-1.25) mg/dL Estimated GFR ML/MIN Glucose (74-106) mg/dL Calcium (8.4-10.2) mg/dL Iron 32 L (49-181) ug/dL TIBC 165 L (261-497) ug/dL Iron Saturation 20 (20-39) % Ferritin 895 H (17.9-464) ng/mL Total Bilirubin (0.2-1.3) mg/dL AST (17-59) U/L ALT (0-50) U/L Alkaline Phosphatase (38-126) U/L Serum Total Protein (6.3-8.2) g/dL Albumin (3.5-5.0) g/dL Vitamin B12 319 (239-931) pg/mL Folic Acid 7.09 (2.76 - >20) ng/mL 02/04/24 Range/Units 04:51 WBC (4.23-9.07) x10^3/uL RBC (4.63-6.08) x10^6/uL Hgb (13.7-17.5) g/dL Hct (40.1-51.0) % MCV (79.0-92.2) fL MCH (25.7-32.2) pg MCHC (32.3-36.5) g/dL RDW (11.6-14.4) % Plt Count (163-337) x10^3/uL MPV (9.4-12.4) fL Sodium 138 (135-145) mmol/L Potassium 3.5 (3.5-5.1) mmol/L Chloride 109 H (98-107) mmol/L Carbon Dioxide 20 L (22-30) mmol/L Anion Gap 12.1 (5-15) MEQ/L BUN 64 H (9-20) mg/dL Creatinine 3.14 H (0.66-1.25) mg/dL Estimated GFR 19.8 ML/MIN Glucose 94 (74-106) mg/dL Calcium 8.6 (8.4-10.2) mg/dL Iron (49-181) ug/dL TIBC (261-497) ug/dL Iron Saturation (20-39) % Ferritin (17.9-464) ng/mL Total Bilirubin 0.20 (0.2-1.3) mg/dL AST 19 (17-59) U/L ALT 11 (0-50) U/L Alkaline Phosphatase 47 (38-126) U/L Serum Total Protein 6.3 (6.3-8.2) g/dL Albumin 3.2 L (3.5-5.0) g/dL Vitamin B12 (239-931) pg/mL Folic Acid (2.76 - >20) ng/mL Micro Results-Entire Visit: Microbiology 02/02/24 11:29 Urine Culture - Final Urine, Void Enterococcus Faecalis - Procedures and Test Procedures and Tests throughout Hospitalization: Therapy Orders & Screens 02/02/24 14:28 PT Eval & Treat ( Order) ONCE Reason for Eval:: near syncope Diagnosis: syncope 02/02/24 15:02 ST Screen per Nursing Assess ONCE Comment: Protocol Order Physician Instructions: Greater than [address] Admission Screening Reason For Exam: Triggered on Admission Diagnosis: syncope CVA/Dyshpagia/Aphasia: No Cognitive Deficits: No Dehydration/Nutrition Deficit: Yes Reflux: No Oral-Motor Difficulties: No Pneumonia: No [facility] Resident: No Total Points: 5 Discharge Exam General Appearance: no apparent distress, alert Neurologic Exam: alert, oriented x 3, cooperative, normal mood/affect, nml cerebellar function, sensation nml, No motor deficits Eye Exam: PERRL, EOMI, eyes nml inspection Ears, Nose, Throat Exam: normal ENT inspection, pharynx normal, moist mucous membranes Neck Exam: normal inspection, non-tender, supple, full range of motion Respiratory Exam: normal breath sounds, lungs clear, No respiratory distress Cardiovascular Exam: regular rate/rhythm, normal heart sounds Gastrointestinal/Abdomen Exam: soft, No tenderness, No mass Male Genitalia Exam: deferred Rectal Exam: deferred Back Exam: normal inspection, normal range of motion, No CVA tenderness, No vertebral tenderness Extremity Exam: normal inspection, normal range of motion Skin Exam: normal color, warm, dry Final Diagnosis/Problem List - Final Discharge Diagnosis/Problem (1) UTI (urinary tract infection) Current Visit: Yes Status: Acute Code(s): N39.0 - URINARY TRACT INFECTION, SITE NOT SPECIFIED (2) Near syncope Current Visit: Yes Status: Acute (3) Chronic renal insufficiency Current Visit: Yes Status: Acute Code(s): N18.9 - CHRONIC KIDNEY DISEASE, UNSPECIFIED (4) Hypotension Current Visit: Yes Status: Resolved Code(s): I95.9 - HYPOTENSION, UNSPECIFIED (5) Macrocytic anemia Current Visit: Yes Status: Acute Assessment & Plan: (1) UTI (urinary tract infection) Current Visit: Yes Status: Acute Assessment & Plan: - Complicated as pt has a hx of multiple UTI's and has a urologist in [facility]. Also follows ID OP for multiple infections. - NS @ 75ml/hr - Reviewed previous culture reports - Start Merrem based on previous results. - UC pending 02/02 - UC gram negative sensitivity pending 02/03 - UC + Enterococcus Faecalis - Will d/c with Levaquin per sensitivity results. Code(s): N39.0 - URINARY TRACT INFECTION, SITE NOT SPECIFIED (2) Near syncope Current Visit: Yes Status: Acute Assessment & Plan: - 2:2 UTI - see UTI plan - PT eval and treat - resolved (3) Chronic renal insufficiency Current Visit: Yes Status: Acute Assessment & Plan: - Follows Dr. Cuba - Baseline 2.61- Today 3.77 02/02 - Creat 3.46- explains pt's creat. at dc from [facility] was 3.35- she thinks this is his baseline level - will send notes to Dr. Cuba per pt request - Creat 3.14- improved - F/U with Dr. Cuba on Mar 11 Code(s): N18.9 - CHRONIC KIDNEY DISEASE, UNSPECIFIED (4) Hypotension Current Visit: Yes Status: Resolved Assessment & Plan: - appears to have resolved since admission with IVF - Continue IVF Code(s): I95.9 - HYPOTENSION, UNSPECIFIED (5) Macrocytic anemia Current Visit: Yes Status: Acute Assessment & Plan: - HGB 9.5- stable - iron panel - Continue Vitamin D3 complete Cap 02/02 - Hgb 8.2- trend 02/03 - Hgb 8.1 - Recheck OP - May be dilutional from IVF Code(s): D53.9 - NUTRITIONAL ANEMIA, UNSPECIFIED - Discharge Discharge Date: 02/04/24 Disposition: Home, Self-Care Condition: Stable Prescriptions: Continue Primidone 50 MG [Mysoline 50Mg] 50 mg PO TID PRN PRN PRN Reason: DEPRESSION Tamsulosin HCl 0.4 mg [Flomax 0.4 MG] 0.4 mg PO HS Mirtazapine 15 mg PO HS Mv-Mn/Iron/Folic Acid/Herb 190 [Vitamin D3 Complete Caplet] 1 each PO DAILY Midodrine HCl 5 mg PO TID Additional Instructions: 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
[2024-02-04 11:19] VITALS: BP 133/69; PULSE 81; TEMP 97.6; O2SAT 97
== END 2024-02-04 12:32 | disposition home or self-care (01) ==
LOC: ED 09:51 → MED SURG 14:05
PROVIDERS: ADMIT Internal Medicine; ATTEND Internal Medicine
DX: N39.0 Urinary tract infection, site not specified (principal); R55 Syncope and collapse; N18.30 Chronic kidney disease, stage 3 unspecified; N40.0 Benign prostatic hyperplasia without lower urinary tract symptoms; I95.9 Hypotension, unspecified; D53.9 Nutritional anemia, unspecified; Z79.899 Other long term (current) drug therapy
CPT/HCPCS: 36000; 36415; 80053; 81001; 82607; 82728; 82746; 83540; 83550; 84484; 85025; 85027; 87077; 87086; 87186; 93005; 93041; 93268; 94760; 96360; 96365; 97161; 99285; G0378; Q3014; J1642; J1644; J1956; A9270-GY

== ENCOUNTER 2025-03-28 10:20 | Day surgery (SDC) | payer MEDICARE, OTHER ==
[2025-03-28] MEDS ORDERED: Lactated Ringers 1,000 ML IV ONE (10:22)
[2025-03-28] MEDS: Lactated Ringers 1,000 ML IV SCH (10:26)
[2025-03-28] MEDS ORDERED: TETRACAINE 0.5% STERI-UNIT SOL OP ONE (10:30)
[2025-03-28] MEDS: TETRACAINE 0.5% STERI-UNIT SOL OP ONE (10:38)
[2025-03-28] MEDS: Ak-Dilate OPHTHALMIC*** 0.71 ML, Cyclogyl 1% OPHTH SOL 0.71 ML, GATIFLOXACIN 0.5% OPHTH... OP SCH (10:40)
[2025-03-28] MEDS ORDERED: propofoL IV ONE (11:48)
[2025-03-28 12:14] VITALS: RESP 16; TEMP 97.3
[2025-03-28] MEDS: ACETAZOLAMIDE 250 MG TABLET PO ONE (12:18)
[2025-03-28 12:28] VITALS: BP 107/62; PULSE 69; O2SAT 97
[2025-03-28] MEDS ORDERED: BETADINE 5% OPHTHALMIC 30 ML OP NR (12:30)
[2025-03-28] MEDS ORDERED: VIGAMOX/BSS 0.15% SYR IO NR (12:30)
[2025-03-28] MEDS ORDERED: TRIAMCINOLONE 15 MG/ML INJ INTRAOP NR (12:30)
[2025-03-28] MEDS ORDERED: DEXMEDETOMIDINE 80 MCG/20ML-NS IV NR (12:30)
[2025-03-28] MEDS ORDERED: DEXTENZA OP NR (12:30)
[2025-03-28] MEDS ORDERED: OMIDRIA 1-0.3% VIAL IO NR (12:30)
[2025-03-28] MEDS ORDERED: Zofran 4 MG/2 ML VIAL IV PRN (12:30)
== END 2025-03-28 12:40 | disposition home or self-care (01) ==
LOC: SDC 10:20
PROVIDERS: ATTEND Ophthalmology
DX: H25.812 Combined forms of age-related cataract, left eye (principal)

== ENCOUNTER 2025-04-25 07:20 | Day surgery (SDC) | payer MEDICARE, OTHER ==
[~2025-04-25 07:20] MED LIST: BETADINE 5% OPHTHALMIC 30 ML OP NR; DEXMEDETOMIDINE 80 MCG/20ML-NS IV NR; DEXTENZA OP NR; Lactated Ringers 1,000 ML IV ONE; OMIDRIA 1-0.3% VIAL IO NR; TRIAMCINOLONE 15 MG/ML INJ INTRAOP NR; VIGAMOX/BSS 0.15% SYR IO NR
[2025-04-25] MEDS ORDERED: Epinephrine Preservative Free 1 MG/ML IJ ONE (07:21)
[2025-04-25 07:30] VITALS: RESP 16
[2025-04-25] MEDS ORDERED: Zofran 4 MG/2 ML VIAL IV PRN (07:30)
[2025-04-25] MEDS: Lactated Ringers 1,000 ML IV SCH (07:35)
[2025-04-25] MEDS: TETRACAINE 0.5% STERI-UNIT SOL OP ONE ×2 (07:35→07:54)
[2025-04-25] MEDS: Ak-Dilate OPHTHALMIC*** 0.71 ML, Cyclogyl 1% OPHTH SOL 0.71 ML, GATIFLOXACIN 0.5% OPHTH... OP SCH (07:36)
[2025-04-25] MEDS ORDERED: propofoL IV ONE (10:56)
[2025-04-25] MEDS ORDERED: BREVIBLOC 100 MG/10 ML IV ONE (11:17)
[2025-04-25] MEDS: ACETAZOLAMIDE 250 MG TABLET PO ONE (11:38)
[2025-04-25 11:44] VITALS: O2SAT 96
[2025-04-25 11:49] VITALS: BP 126/79; PULSE 67; TEMP 98.2
== END 2025-04-25 11:56 | disposition home or self-care (01) ==
LOC: SDC 07:20
PROVIDERS: ATTEND Ophthalmology
DX: H25.811 Combined forms of age-related cataract, right eye (principal)